=== PATIENT | male | born 1970 | race Two or more races ===

== ENCOUNTER 2025-07-04 12:27 | Inpatient (IN) | payer OTHER ==
[2025-07-04] MEDS ORDERED: guaiFENesin 600 MG TABLET.ER (FP) PO PRN (13:38)
[2025-07-04] MEDS ORDERED: BENZOCAINE/MENTHOL (CHLORASEPTIC ) LOZENGE MM PRN (13:38)
[2025-07-04] MEDS ORDERED: NALOXONE HCL 0.4 MG/ML VIAL IVPUSH PRN (13:38)
[2025-07-04] MEDS ORDERED: MAG HYDROX/AL HYDROX/SIMETH 30 ML UNIT-DOSE CUP PO PRN (13:38)
[2025-07-04] MEDS ORDERED: IBUPROFEN 600 MG TABLET (FP) PO PRN (13:38)
[2025-07-04] MEDS ORDERED: MAGNESIUM HYDROX 2400MG/30ML ORAL SUSPENSION 30 ML CUP PO PRN (13:38)
[2025-07-04] MEDS ORDERED: LOPERAMIDE HCL 2 MG CAPSULE PO PRN (13:38)
[2025-07-04] MEDS ORDERED: POLYETHYLENE GLYCOL (HEALTHYLAX) 3350 17 GM PACKET PO PRN (13:38)
[2025-07-04] MEDS ORDERED: NALOXONE (NARCAN) HCL 4 MG/0.1 ML SPRAY NS PRN (13:38)
[2025-07-04] MEDS ORDERED: BENZONATATE 200 MG CAPSULE PO PRN (13:38)
[2025-07-04] MEDS ORDERED: IBUPROFEN 400 MG TABLET (FP) PO PRN (13:38)
[2025-07-04] MEDS: ACETAMINOPHEN 325 MG TABLET (FP) PO PRN (14:01)
[2025-07-04] MEDS: PRENATAL VITAMINS W/ FOLIC ACID TABLET (FP) PO SCH (15:27)
[2025-07-04] MEDS: NICOTINE POLACRILEX 4 MG LOZENGE BC PRN (20:23)
[2025-07-04] MEDS: METHOCARBAMOL 500 MG TABLET PO PRN (21:18)
[2025-07-04] MEDS: THIAMINE 100 MG TABLET PO SCH (21:18)
[2025-07-04] MEDS: MELATONIN 5 MG TABLETS PO SCH (21:18)
[2025-07-04] MEDS: BUPRENORPHINE/NALOXONE 8 MG/2 MG FILM PACKET SL SCH (21:20)
[2025-07-04] MEDS ORDERED: MELATONIN 5 MG TABLETS PO SCH (22:00)
[2025-07-05] MEDS: amLODIPine BESYLATE 5 MG TABLET (FP) PO SCH (10:25)
[2025-07-05] MEDS: LISINOPRIL 20 MG TABLET PO SCH (10:25)
[2025-07-05] MEDS: NICOTINE 14 MG/24 HOURS TOPICAL PATCH TD SCH (10:26)
[2025-07-05] MEDS: NICOTINE POLACRILEX 2 MG LOZENGE BC PRN (10:58)
[2025-07-05] MEDS: hydrOXYzine PAMOATE 25 MG CAPSULE (FP) PO PRN (21:22)
[2025-07-06] MEDS: NICOTINE 21 MG/24 HOURS TOPICAL PATCH TD SCH (09:58)
[2025-07-07] MEDS: NICOTINE POLACRILEX 2 MG GUM BUC PRN (21:23)
[2025-07-07] MEDS: BUPRENORPHINE/NALOXONE 4 MG/1 MG FILM PACKET SL SCH (21:24)
[2025-07-08] MEDS: BUPRENORPHINE/NALOXONE 8 MG/2 MG FILM PACKET SL SCH (09:55)
[2025-07-10] MEDS ORDERED: MELATONIN 5 MG TABLETS PO PRN (22:00)
[2025-07-18 06:40] VITALS: TEMP 97.7
[2025-07-18 10:32] VITALS: BP 113/74; PULSE 87; RESP 18
== END 2025-07-18 10:12 | disposition home or self-care (01) | DRG 772 ==
LOC: YASAS 12:27 → Y5N 12:28
PROVIDERS: ADMIT Psychiatry & Neurology Pain Medicine; ATTEND Psychiatry & Neurology Pain Medicine
PROC: HZ42ZZZ Group Counseling for Substance Abuse Treatment, Cognitive-Behavioral (ICD-10-PCS; principal; 2025-07-04)
DX: F11.20 Opioid dependence, uncomplicated (principal); F14.20 Cocaine dependence, uncomplicated; F13.20 Sedative, hypnotic or anxiolytic dependence, uncomplicated; F10.20 Alcohol dependence, uncomplicated; F17.210 Nicotine dependence, cigarettes, uncomplicated; F41.9 Anxiety disorder, unspecified; I10 Essential (primary) hypertension; R76.89 Other specified abnormal immunological findings in serum
CPT/HCPCS: 82962